=== PATIENT | female | born 1945 | race Caucasian/White ===

== ENCOUNTER 2020-02-24 21:08 | Inpatient (IN) | payer OTHER ==
[~2020-02-24] VITALS: Ht 167.6 cm; Wt 83.5 kg
[2020-02-24] MEDS ORDERED: LEVAQUIN750 MG (21:31)
[2020-02-24] MEDS ORDERED: ATIVAN1 M1 (21:31)
[2020-02-24] MEDS ORDERED: VITAMIN C100 MG (21:32)
[2020-02-24] MEDS ORDERED: RISPERDAL3 MG (21:32)
[2020-02-24] MEDS ORDERED: TRAZODONE HCL150 MG (21:32)
[2020-02-24] MEDS ORDERED: INSULIN SYRING1 EA29 (21:33)
[2020-03-10] MEDS ORDERED: BACTRIM DS TAB1 EACH PO (12:47)
[2020-03-10] MEDS ORDERED: INTESTINEX680 M1 PO (12:47)
[2020-03-10] MEDS ORDERED: Lantus 1000 UNITS/10 SUBCUTANEO (12:47)
[2020-03-10] MEDS ORDERED: RISPERDAL3 MG PO (12:47)
[2020-03-10] MEDS ORDERED: AMLODIPINE BESY10 MG PO (12:47)
[2020-03-10] MEDS ORDERED: ATIVAN1 M1 PO (12:47)
[2020-03-10] MEDS ORDERED: TRAZODONE HCL150 MG PO (12:47)
[2020-03-10] MEDS ORDERED: BENZONATATE200 M1 PO (12:47)
[2020-03-10] MEDS ORDERED: HUMALOG100 UNIT/1 SUBCUTANEO (12:47)
== END 2020-03-10 16:02 | disposition home or self-care (01) | DRG 854 ==
LOC: ER 21:08 → MEDI 02-25 10:00 → SURH 02-25 10:00
PROVIDERS: Colon & Rectal Surgery; ADMIT Internal Medicine; ATTEND Internal Medicine
PROC: 8E0ZXY6 Isolation (ICD-10-PCS; 2020-02-28)
PROC: 0H96XZZ Drainage of Back Skin, External Approach (ICD-10-PCS; 2020-02-28)
PROC: 0JB70ZZ Excision of Back Subcutaneous Tissue and Fascia, Open Approach (ICD-10-PCS; principal; 2020-02-28 07:45)
DX: A41.02 Sepsis due to Methicillin resistant Staphylococcus aureus (principal); L03.312 Cellulitis of back [any part except buttock and flank]; L02.212 Cutaneous abscess of back [any part, except buttock and flank]; F03.90 Unspecified dementia, unspecified severity, without behavioral disturbance, psychotic disturbance, mood disturbance, and anxiety; E86.0 Dehydration; E11.65 Type 2 diabetes mellitus with hyperglycemia; Z79.4 Long term (current) use of insulin; F20.9 Schizophrenia, unspecified; L98.429 Non-pressure chronic ulcer of back with unspecified severity; I11.0 Hypertensive heart disease with heart failure; I50.9 Heart failure, unspecified